=== PATIENT | female | born 1980 | race Asian ===

== ENCOUNTER 2016-10-25 00:45 | Inpatient (IN) | payer SELFPAY ==
[~2016-10-25] VITALS: Ht 165.1 cm; Wt 72.1 kg
[2016-10-25] MEDS ORDERED: CITRIC ACID/SODIUM CITRATE 30 ML UDC PO ONE (01:05)
[2016-10-25] MEDS ORDERED: LACTATED RINGERS 1,000 ML IV SCH (01:05)
[2016-10-25 01:22] LABS: BASOPHILS # (AUTO) 0.1 K/uL (0.00-0.22); EOSINOPHILS # (AUTO) 0.1 K/uL (0-0.4); EOSINOPHILS % (AUTO) 1.4 % (0.0-4.0); HEMATOCRIT 36.9 % (36-48); HEMOGLOBIN 12.1 g/dL (12.0-16.0); LYMPHOCYTES # (AUTO) 1.9 K/uL (2.5-16.5); LYMPHOCYTES % (AUTO) 24.9 % (20.5-51.1); MEAN CORPUSCULAR HEMOGLOBIN 33 pg (27-31); MEAN CORPUSCULAR HGB CONC 33 g/dL (33-37); MEAN CORPUSCULAR VOLUME 99 fL (80-94); MONOCYTES # (AUTO) 0.6 K/uL (0.8-1.0); MONOCYTES % (AUTO) 7.4 % (1.7-9.3); NEUTROPHILS % (AUTO) 65.3 % (42.2-75.2); PLATELET COUNT (AUTO) 212 K/uL (140-450); RED BLOOD CELL COUNT(AUTO) 3.72 MIL/uL (4.20-5.40); RED CELL DISTRIBUTION WIDTH 12.7 % (11.6-13.7); WHITE BLOOD COUNT (AUTO) 7.7 K/uL (4.8-10.8)
[2016-10-25 01:24] LABS: APPEARANCE,URINE CLOUDY (CLEAR); BILIRUBIN,URINE NEGATIVE (NEGATIVE); BLOOD, URINE 2+ (NEGATIVE); COLOR,URINE YELLOW (YELLOW); LEUKOCYTE ESTERASE ,URINE 3+ (NEGATIVE); NITRITE, URINE NEGATIVE (NEGATIVE); PROTEIN,URINE NEGATIVE (NEGATIVE); UGLUCOSE NEGATIVE (NEGATIVE); UROBILINOGEN,URINE 0.2 EU/dL (0.2 - 1)
[2016-10-25 01:33] LABS: BACTERIA,URINE 1+ /HPF (None Seen); RBC,URINE 0-5 (RARE) /HPF (0-5); SQUAMOUS EPITHELIAL CELL,UR 20-50 /LPF (0-3 (FEW))
[2016-10-25 01:34] LABS: WBC,URINE 80-100 /HPF (0-5)
[2016-10-25 01:51] LABS: HIV RAPID SCREEN NON-REACTIVE (NON REACTIV)
[2016-10-25 02:35] VITALS: BP 110/56
[2016-10-25] MEDS ORDERED: OXYTOCIN 10 UNITS/ML VIAL ONE (05:45)
[2016-10-25] MEDS ORDERED: TRIAMCINOLONE 40 MG/ML 5ML VIAL ONE (05:45)
[2016-10-25] MEDS ORDERED: ceFAZolin 1,000 MG VIAL ONE (05:54)
[2016-10-25] MEDS ORDERED: CITRIC ACID/SODIUM CITRATE 30 ML UDC ONE (05:54)
[2016-10-25] MEDS ORDERED: BUPIVACAINE-MPF 0.75% 10 ML VIAL INJ ONE (06:00)
[2016-10-25] MEDS ORDERED: ONDANSETRON 4 MG/2 ML VIAL IVP ONE (06:00)
[2016-10-25] MEDS ORDERED: MORPHINE PRES FREE 10 MG/10 ML AMP IV ONE (06:07)
[2016-10-25] MEDS ORDERED: TRIAMCINOLONE 40 MG/ML 5ML VIAL IM ONE (06:24)
[2016-10-25] MEDS ORDERED: OXYTOCIN 10 UNITS/ML VIAL IM ONE (06:24)
[2016-10-25] MEDS ORDERED: diphenhydrAMINE 50 MG/ML VIAL IVP PRN (06:25)
[2016-10-25] MEDS ORDERED: KETOROLAC 30 MG/ML VIAL IVP PRN (06:25)
[2016-10-25] MEDS ORDERED: ONDANSETRON 4 MG/2 ML VIAL IVP PRN (06:25)
[2016-10-25] MEDS ORDERED: OXYTOCIN 20 UNITS/LR PREMIX 1,000 ML IV SCH (06:25)
[2016-10-25] MEDS ORDERED: NALOXONE 0.4 MG/ML VIAL IVP PRN ×2 (06:25)
[2016-10-25] MEDS ORDERED: TEMAZEPAM 15 MG CAP PO PRN (06:40)
[2016-10-25] MEDS ORDERED: TRIMETHOBENZAMIDE 200 MG/2 ML SYR IM PRN (06:40)
[2016-10-25] MEDS ORDERED: MEASLES, MUMPS, AND RUBELLA 1 VIAL SQVAC PRN (06:40)
[2016-10-25] MEDS ORDERED: METHYLERGONOVINE 0.2 MG/ML AMP IM PRN (06:40)
[2016-10-25] MEDS ORDERED: oxyCODONE/APAP 5/325 MG 1 TAB TAB PO PRN (06:40)
[2016-10-25] MEDS ORDERED: diphenhydrAMINE 50 MG/ML VIAL ONE (07:04)
[2016-10-25] MEDS ORDERED: OXYTOCIN 20 UNITS/LR PREMIX 1,000 ML IV ONE (07:04)
--- NOTE | 2016-10-25 08:58 | NUR ---
PATIENT HAS BEEN SCREENED AND CATEGORIZED LOW NUTRITION RISK. PATIENT WILL BE SEEN WITHIN 7 DAYS OF ADMISSION. 10/31/[address]
[2016-10-25 13:40] LABS: RAPID PLASMA REAGIN NON-REACTIVE (Non Reactiv)
[2016-10-25] MEDS: OXYTOCIN 20 UNITS/LR PREMIX 1,000 ML IV SCH ×2 (15:07→22:26)
[2016-10-25] MEDS: DOCUSATE SOD/SENNA 50/8.6 MG 1 TAB PO SCH (21:00)
[2016-10-26 06:26] LABS: BASOPHILS % (AUTO) 0.2 % (0.0-2.0); EOSINOPHILS # (AUTO) 0.2 K/uL (0-0.4); EOSINOPHILS % (AUTO) 1.2 % (0.0-4.0); HEMATOCRIT 34.7 % (36-48); HEMOGLOBIN 11.3 g/dL (12.0-16.0); LYMPHOCYTES # (AUTO) 1.4 K/uL (2.5-16.5); LYMPHOCYTES % (AUTO) 11.2 % (20.5-51.1); MEAN CORPUSCULAR HEMOGLOBIN 33 pg (27-31); MEAN CORPUSCULAR HGB CONC 33 g/dL (33-37); MEAN CORPUSCULAR VOLUME 100 fL (80-94); MONOCYTES # (AUTO) 0.8 K/uL (0.8-1.0); MONOCYTES % (AUTO) 6.5 % (1.7-9.3); NEUTROPHILS # (AUTO) 10.5 K/uL (1.8-7.7); NEUTROPHILS % (AUTO) 80.9 % (42.2-75.2); PLATELET COUNT (AUTO) 177 K/uL (140-450); RED BLOOD CELL COUNT(AUTO) 3.48 MIL/uL (4.20-5.40); RED CELL DISTRIBUTION WIDTH 12.8 % (11.6-13.7); WHITE BLOOD COUNT (AUTO) 12.9 K/uL (4.8-10.8)
[2016-10-26] MEDS: HYDROcodone/APAP 5/325 MG 1 TAB TAB PO PRN ×2 (10:54→20:07)
[2016-10-26] MEDS: SIMETHICONE 80 MG TAB.CHEW PO PRN ×2 (13:18→18:23)
[2016-10-26] MEDS: IBUPROFEN 800 MG TAB PO PRN (15:01)
[2016-10-26] MEDS: DOCUSATE SOD/SENNA 50/8.6 MG 1 TAB PO SCH (21:43)
[2016-10-27] MEDS: SIMETHICONE 80 MG TAB.CHEW PO PRN (08:16)
[2016-10-27] MEDS: IBUPROFEN 800 MG TAB PO PRN (08:16)
== END 2016-10-27 13:30 | disposition home or self-care (01) | DRG 766 ==
LOC: MLD 00:45 → MFCC 08:16
PROVIDERS: ADMIT Obstetrics & Gynecology; ATTEND Obstetrics & Gynecology
PROC: 10D00Z1 Extraction of Products of Conception, Low, Open Approach (ICD-10-PCS; principal; 2016-10-25 06:00)
DX: O34.211 Maternal care for low transverse scar from previous cesarean delivery (principal); Z37.0 Single live birth; O09.529 Supervision of elderly multigravida, unspecified trimester; Z3A.39 39 weeks gestation of pregnancy; Z28.21 Immunization not carried out because of patient refusal
CPT/HCPCS: 36415; 81001; 85025; 86592; 86886; 86900; 86901; 87086; 87186; J0690; J1200; J2270; J2405; J2590; J3301; J3490; J7060; J7120